=== PATIENT | male | born 1955 | race African-American/Black ===

== ENCOUNTER 2020-07-15 11:38 | Emergency (ER) | payer BC ==
[2020-07-15 15:24] LABS: Absolute Lymphocytes (CBC) 2.8 K/uL (0.7-4.9); Basophils % 0.5 % (0-1.3); Hematocrit 32.9 % (39.6-49.0); Lymphocytes % 27.8 % (15.3-44.8); MPV 9.1 fL (7.6-11.3); RBC Red Blood Cell Count 3.66 M/uL (4.33-5.43)
[2020-07-15 15:36] LABS: BUN Blood Urea Nitrogen 12 mg/dL (7-18); Bicarbonate 29 mmol/L (21-32); Glucose Level 95 mg/dL (74-106); Potassium 4.1 mmol/L (3.5-5.1); Sodium Level 139 mmol/L (136-145)
[2020-07-15] MEDS ORDERED: LORAZEPAM 1 MG TABLET ONE (15:42)
[2020-07-15 16:24] LABS: Urine Blood NEGATIVE (NEG); Urine Glucose NEGATIVE (NEG); Urine Protein NEGATIVE (NEG); Urine Specific Gravity 1.025 (1.005-1.030); Urine pH 7.5 (5.0-7.0)
--- NOTE | 2020-07-15 16:26 | ER ---
Nurse's Notes [facility] Name: Mingo Tena Age: 64 yrs Sex: Male : 1955 Arrival Date: 07/15/2020 Time: 11:42 Bed 13 Private MD: Diagnosis: Insomnia;Insomnia, unspecified Presentation: 07/15 12:21 Chief complaint: Patient states: I can't sleep since probably a week ago. Get only ca1 couple hours sleep each day. Denies drinking coffee and energy drinks.. Reports headache on the headache on the forehead x 1 week. Coronavirus screen: Client denies travel out of the [place] in the last 14 days. At this time, the client does not indicate any symptoms associated with coronavirus-19. Ebola Screen: Patient negative for fever greater than or equal to 101.5 degrees Fahrenheit, and additional compatible Ebola Virus Disease symptoms Patient denies exposure to infectious person. Patient denies travel to an Ebola-affected area in the 21 days before illness onset. No symptoms or risks identified at this time. Initial Sepsis Screen: Does the patient meet any 2 criteria? No. Patient's initial sepsis screen is negative. Does the patient have a suspected source of infection? No. Patient's initial sepsis screen is negative. Risk Assessment: Do you want to hurt yourself or someone else? Patient reports no desire to harm self or others. Onset of symptoms was July 15, 2020. 12:21 Method Of Arrival: Ambulatory ca1 12:21 Acuity: SASHA 3 ca1 Historical: - Allergies: 12:24 No Known Allergies; ca1 - PMHx: 12:24 Hypertension; ca1 - PSHx: 12:24 None; ca1 - Immunization history:: Flu vaccine is not up to date. - Social history:: Smoking status: Patient denies any tobacco usage or history of. Screenin:46 Abuse screen: Denies threats or abuse. Nutritional screening: No deficits noted. jd3 Tuberculosis screening: No symptoms or risk factors identified. Fall Risk Ambulatory Aid- None/Bed Rest/Nurse Assist (0 pts). Gait- Normal/Bed Rest/Wheelchair (0 pts) Mental Status- Oriented to own ability (0 pts). Total [place] Fall Scale indicates No Risk (0-24 pts). Assessment: 13:44 General: Appears in no apparent distress. comfortable, Behavior is calm, cooperative, jd3 appropriate for age, Reports feeling tired, unable to sleep. Pain: Denies pain. Neuro: Level of Consciousness is awake, alert, obeys commands, Oriented to person, place, time, situation, Denies weakness blurred vision numbness photophobia diplopia. Cardiovascular: Heart tones present Capillary refill < 3 seconds Patient's skin is warm and dry. Respiratory: Airway is patent Respiratory effort is even, unlabored, Respiratory pattern is regular, symmetrical, Breath sounds are clear bilaterally. Denies cough, shortness of breath. GI: Abdomen is round non-distended, Patient currently denies constipation, diarrhea, nausea, vomiting. : No signs and/or symptoms were reported regarding the genitourinary system. EENT: No signs and/or symptoms were reported regarding the EENT system. Derm: Skin is intact, Skin is dry, Skin is normal, Skin temperature is warm. Musculoskeletal: Circulation, motion, and sensation intact. Range of motion: intact in all extremities. 14:37 Reassessment: Patient appears in no apparent distress at this time. No changes from jd3 previously documented assessment. Patient and/or family updated on plan of care and expected duration. Pain level reassessed. Patient is alert, oriented x 3, equal unlabored respirations, skin warm/dry/pink. 15:34 Reassessment: Patient appears in no apparent distress at this time. Patient and/or jd3 family updated on plan of care and expected duration. Pain level reassessed. Patient is alert, oriented x 3, equal unlabored respirations, skin warm/dry/pink. awaiting results. 17:03 Reassessment: Patient appears in no apparent distress at this time. Patient and/or iw family updated on plan of care and expected duration. Pain level reassessed. Patient is alert, oriented x 3, equal unlabored respirations, skin warm/dry/pink. Vital Signs: 12:21 BP 152 / 97; Pulse 92; Resp 16 S; Temp 97.7(TE); Pulse Ox 100% on R/A; Weight 86.18 kg ca1 (R); Height 6 ft. 4 in. (193.04 cm) (R); Pain 10/10; 13:46 BP 160 / 97; Pulse 81; Resp 16 S; Pulse Ox 100% on R/A; jd3 14:37 BP 154 / 99; Pulse 82; Resp 18 S; Pulse Ox 100% on R/A; jd3 12:21 Body Mass Index 23.13 (86.18 kg, 193.04 cm) ca1 ED Course: 11:42 Patient arrived in ED. am2 12:24 Triage completed. ca1 12:24 Arm band placed on right wrist. ca1 13:38 Salomón Cosme, RN is Primary Nurse. jd3 13:46 Patient has correct armband on for positive identification. Bed in low position. Call jd3 light in reach. Side rails up X 1. Pulse ox on. NIBP on. 14:12 Steven Rose MD is Attending Physician. kdr 15:16 Initial lab(s) drawn, by me, sent to lab. Inserted saline lock: 22 gauge in right iw antecubital area, using aseptic technique. Blood collected. 17:03 No provider procedures requiring assistance completed. IV discontinued, intact, iw bleeding controlled, No redness/swelling at site. Pressure dressing applied. Administered Medications: 15:28 Drug: Ativan 1 mg Route: PO; jd3 Outcome: 16:23 Discharge ordered by . kdr 17:25 Discharged to home ambulatory. iw 17:25 Condition: good 17:25 Discharge instructions given to patient, Instructed on discharge instructions, follow up and referral plans. medication usage, safety practices, Demonstrated understanding of instructions, follow-up care, medications, Prescriptions given X 1. 17:26 Patient left the ED. iw Signatures: Steven Rose MD MD kdr Sherri Willis RN RN iw Jannet Dhillon am2 Salomón Cosme, THELMA RENEE jKaitlyn oRoney RN RN ca1
--- NOTE | 2020-07-15 16:27 | EDPHYS ---
Physician Documentation [facility] Name: Mingo Tena Age: 64 yrs Sex: Male : 1955 Arrival Date: 07/15/2020 Time: 11:42 Bed 13 Private MD: ED Physician Steven Rose HPI: 07/15 15:03 This 64 yrs old Black Male presents to ER via Ambulatory with complaints of unable to kdr sleep. 15:03 The patient has not been able to sleep for the last three days. He denies any other kdr associated s/s nor does he have any idea why this is happening. He is visiting here from [place] for the past three weeks and denies any other precipitating factors. Onset: The symptoms/episode began/occurred gradually, 3 day(s) ago. Severity of symptoms: At their worst the symptoms were moderate in the emergency department the symptoms are unchanged. The patient has not experienced similar symptoms in the past. The patient has not recently seen a physician. Historical: - Allergies: 12:24 No Known Allergies; ca1 - PMHx: 12:24 Hypertension; ca1 - PSHx: 12:24 None; ca1 - Immunization history:: Flu vaccine is not up to date. - Social history:: Smoking status: Patient denies any tobacco usage or history of. ROS: 15:03 Constitutional: Negative for fever, chills, and weight loss, Eyes: Negative for injury, kdr pain, redness, and discharge, ENT: Negative for injury, pain, and discharge, Neck: Negative for injury, pain, and swelling, Cardiovascular: Negative for chest pain, palpitations, and edema, Respiratory: Negative for shortness of breath, cough, wheezing, and pleuritic chest pain, Abdomen/GI: Negative for abdominal pain, nausea, vomiting, diarrhea, and constipation, Back: Negative for injury and pain, : Negative for injury, bleeding, discharge, and swelling, MS/Extremity: Negative for injury and deformity, Skin: Negative for injury, rash, and discoloration, Neuro: Negative for headache, weakness, numbness, tingling, and seizure activity. Psych: Negative for depression, anxiety, suicide ideation, homicidal ideation, and hallucinations, Allergy/Immunology: Negative for hives, rash, and allergies, Endocrine: Negative for neck swelling, polydipsia, polyuria, polyphagia, and marked weight changes, Hematologic/Lymphatic: Negative for swollen nodes, abnormal bleeding, and unusual bruising. Exam: 15:03 Constitutional: This is a well developed, well nourished patient who is awake, alert, kdr and in no acute distress. Head/Face: Normocephalic, atraumatic. Eyes: Pupils equal round and reactive to light, extra-ocular motions intact. Lids and lashes normal. Conjunctiva and sclera are non-icteric and not injected. Cornea within normal limits. Periorbital areas with no swelling, redness, or edema. Neck: Trachea midline, no thyromegaly or masses palpated, and no cervical lymphadenopathy. Supple, full range of motion without nuchal rigidity, or vertebral point tenderness. No Meningismus. Chest/axilla: Normal chest wall appearance and motion. Nontender with no deformity. No lesions are appreciated. Cardiovascular: Regular rate and rhythm with a normal S1 and S2. No gallops, murmurs, or rubs. Normal PMI, no JVD. No pulse deficits. Respiratory: Lungs have equal breath sounds bilaterally, clear to auscultation and percussion. No rales, rhonchi or wheezes noted. No increased work of breathing, no retractions or nasal flaring. Abdomen/GI: Soft, non-tender, with normal bowel sounds. No distension or tympany. No guarding or rebound. No evidence of tenderness throughout. Back: No spinal tenderness. No costovertebral tenderness. Full range of motion. Skin: Warm, dry with normal turgor. Normal color with no rashes, no lesions, and no evidence of cellulitis. MS/ Extremity: Pulses equal, no cyanosis. Neurovascular intact. Full, normal range of motion. Neuro: Awake and alert, GCS 15, oriented to person, place, time, and situation. Cranial nerves II-XII grossly intact. Motor strength 5/5 in all extremities. Sensory grossly intact. Cerebellar exam normal. Normal gait. Psych: Awake, alert, with orientation to person, place and time. Behavior, mood, and affect are within normal limits. Vital Signs: 12:21 BP 152 / 97; Pulse 92; Resp 16 S; Temp 97.7(TE); Pulse Ox 100% on R/A; Weight 86.18 kg ca1 (R); Height 6 ft. 4 in. (193.04 cm) (R); Pain 10/10; 13:46 BP 160 / 97; Pulse 81; Resp 16 S; Pulse Ox 100% on R/A; jd3 14:37 BP 154 / 99; Pulse 82; Resp 18 S; Pulse Ox 100% on R/A; jd3 12:21 Body Mass Index 23.13 (86.18 kg, 193.04 cm) ca1 MDM: 15:03 Data reviewed: vital signs, nurses notes, lab test result(s), radiologic studies. kdr Counseling: I had a detailed discussion with the patient and/or guardian regarding: the historical points, exam findings, and any diagnostic results supporting the discharge/admit diagnosis, lab results, radiology results, the need for outpatient follow up. 16:23 Patient medically screened. [facility] 07/15 15:03 Order name: CBC with Diff; Complete Time: 16:16 kdr 07/15 15:03 Order name: Chem 7; Complete Time: 16:16 kdr 07/15 15:03 Order name: Urine Dipstick-Ancillary (obtain specimen); Complete Time: 15:38 kdr 07/15 15:44 Order name: Urine Dipstick--Ancillary (enter results); Complete Time: 17:14 eb Administered Medications: 15:28 Drug: Ativan 1 mg Route: PO; jd3 Disposition: 07/15/20 16:23 Discharged to Home. Impression: Insomnia, Insomnia, unspecified. - Condition is Stable. - Discharge Instructions: Insomnia. - Prescriptions for Ativan 1 mg Oral Tablet - take 1 tablet by ORAL route every 8 hours As needed DO NOT TAKE WITH TRAZADONE; 3 tablet. - Medication Reconciliation Form, Thank You Letter form. - Follow up: Private Physician; When: 2 - 3 days; Reason: If symptoms return, Further diagnostic work-up, Recheck today's complaints, Continuance of care, Re-evaluation by your physician. - Problem is new. - Symptoms have improved. Signatures: Dispatcher [employer] EDMS Steven Rose MD MD kdr Sherri Willis RN RN iw Davies, Jonathon, RN RN jd3 Aciman, Kaitlyn RN THELMA ca1 Corrections: (The following items were deleted from the chart) 16:30 16:23 07/15/2020 16:23 Discharged to Home. Impression: Narcolepsy. Condition is Stable. kdr Forms are Medication Reconciliation Form, Thank You Letter, Antibiotic Education, Prescription Opioid Use. Follow up: Private Physician; When: 2 - 3 days; Reason: If symptoms return, Further diagnostic work-up, Recheck today's complaints, Continuance of care, Re-evaluation by your physician. Problem is new. Symptoms have improved. kdr 17:26 16:30 07/15/2020 16:23 Discharged to Home. Impression: Insomnia; Insomnia, unspecified. iw Condition is Stable. Discharge Instructions: Insomnia. Forms are Medication Reconciliation Form, Thank You Letter. Follow up: Private Physician; When: 2 - 3 days; Reason: If symptoms return, Further diagnostic work-up, Recheck today's complaints, Continuance of care, Re-evaluation by your physician. Problem is new. Symptoms have improved. kdr
[2020-07-15 17:40] VITALS: TEMP 97.7; O2SAT 100
[2020-07-15 17:43] VITALS: BP 154/99
== END 2020-07-15 17:26 | disposition home or self-care (01) ==
LOC: ER 11:38
DX: G47.00 Insomnia, unspecified (principal); I10 Essential (primary) hypertension
CPT/HCPCS: 36415; 80048; 81003; 85025; 99284